=== PATIENT | male | born 1985 | race American Indian/Alaskan Native ===

== ENCOUNTER 2017-05-15 08:55 | Outpatient (CLI) | payer OTHER ==
--- NOTE | 2017-05-15 10:40 | XRay Report ---
LEFT FOOT THREE VIEWS: 05/15/17 CLINICAL: Left foot pain. FINDINGS: Mild hallux out his deformity. Mild arthritis at the first MTP joint. No erosions. Mild soft tissue swelling of the forefoot. No soft tissue air or foreign body. IMPRESSION: Mild arthritis and nonspecific soft tissue swelling.
== END 2017-05-15 08:56 | disposition home or self-care (01) ==
LOC: SPVIMAG 08:55
PROVIDERS: ATTEND Orthopaedic Surgery Sports Medicine
DX: M19.072 Primary osteoarthritis, left ankle and foot (principal); M20.5X2 Other deformities of toe(s) (acquired), left foot

== ENCOUNTER 2017-05-18 10:55 | Outpatient (CLI) | payer OTHER ==
--- NOTE | 2017-05-18 11:26 | XRay Report ---
XRAY LEFT SHOULDER THREE VIEWS: 05/18/17 10:55:00 CLINICAL: Left shoulder pain. FINDINGS: Suboptimal positioning on the scapular Y-view. However, no dislocation. No fracture. Normal glenohumeral joint. Normal AC joint. The soft tissues are normal. IMPRESSION: Normal.
--- NOTE | 2017-05-18 11:27 | XRay Report ---
XRAY CERVICAL SPINE WITH OBLIQUES SEVEN VIEWS: 05/18/17 10:55:00 CLINICAL: Neck pain. FINDINGS: Normal vertebral body height, alignment and disk spaces through T1. Small anterior osteophytes at C5-6. No neural foraminal stenosis. No fracture or subluxation. Normal soft tissues and airway. IMPRESSION: Mild degenerative disc disease at C5-6.
== END 2017-05-18 10:56 | disposition home or self-care (01) ==
LOC: SPVIMAG 10:55
PROVIDERS: ATTEND Physical Medicine & Rehabilitation
DX: M50.322 Other cervical disc degeneration at C5-C6 level (principal); M25.512 Pain in left shoulder
CPT/HCPCS: 72052

== ENCOUNTER 2018-09-30 10:43 | Outpatient (CLI) | payer OTHER ==
--- NOTE | 2018-09-30 19:32 | Magnetic Resonance Report ---
PROCEDURE: MR UE JOINT LT WO CON HISTORY: SPRAIN OF LEFT WRIST FINDINGS: MRI of the left wrist was performed using coronal T1, coronal fat saturated T2, axial T1, a xial fat saturated T2, sagittal T1, sagittal fat saturated T2, sagittal inversion recovery and mccall l T2*gradient echo images. There is no fracture. The triangular fibrocartilage complex appears intact. The scapholunate and lunatotriquetral ligaments appear intact. The median nerve is seen within the carpal tunnel and appears normal in size and signal. The flexor r etinaculum appears intact. No tendon abnormality is seen. No wrist mass is identified. IMPRESSION: The left wrist appears intact This document is electronically signed by Jonathan Markham MD., September 30 2018 07:29:51 PM ET
== END 2018-09-30 10:44 | disposition home or self-care (01) ==
LOC: MRI 10:43
PROVIDERS: ATTEND Preventive Medicine Preventive Medicine/Occupational Environmental Medicine
DX: S63.502A Unspecified sprain of left wrist, initial encounter (principal); X58.XXXA Exposure to other specified factors, initial encounter; Y93.89 Activity, other specified; Y92.89 Other specified places as the place of occurrence of the external cause; Y99.8 Other external cause status